=== PATIENT | female | born 1985 | race Hispanic/Latino ===

== ENCOUNTER 2016-10-01 09:48 | Observation (INO) | payer OTHER ==
[2016-10-01] MEDS ORDERED: Lactated Ringer's 1,000 ML IV SCH (10:30)
--- NOTE | 2016-10-01 10:46 | ED PDOC ---
HPI: Female Pain Time Seen by Provider: 10/01/16 10:09 Chief Complaint (Nursing): Abdominal Pain Chief Complaint (Provider): Vaginal bleeding - at approx 4 weeks History Per: Patient History/Exam Limitations: no limitations Onset/Duration Of Symptoms: Days Current Symptoms Are (Timing): Still Present Severity: None Associated Symptoms: Vomiting. denies: Fever, Chills, Nausea Additional Complaint(s): PT states her last normal menses was 09/05/16. She states she had a few days when she was not bleeding and has been spotting since. Pt reports increased bleeding last night and today. Beta Hcg was 72273 on 09/25/16 and 1600 on . Pt reports repeat Beta Hcg a few days ago but does not have the result yet. Pt did not have US to confirm IUP. Pts OB is Dr. Pineda. Past Medical History Reviewed: Historical Data, Nursing Documentation, Vital Signs Vital Signs: Last Vital Signs Temp 98.9 F 10/01/16 10:10 Pulse 68 10/01/16 10:10 Resp 20 10/01/16 10:10 BP 124/89 10/01/16 10:10 Pulse Ox 98 10/01/16 10:10 - Medical History PMH: No Chronic Diseases - Surgical History Surgical History: No Surg Hx - Family History Family History: States: No Known Family Hx - Living Arrangements Living Arrangements: With Family () - Social History Current smoker - smoking cessation education provided: No - Allergies Allergies/Adverse Reactions: Allergies Allergy/AdvReac Type Severity Reaction Status Date / Time No Known Allergies Allergy Verified 10/01/16 10:10 - Laboratory Results Result Diagrams: 10/01/16 10:57 10/01/16 10:57 - ECG O2 Sat by Pulse Oximetry: 98 Medical Decision Making Medical Decision Making: Beta Hcg 1799 today. US without IUP, ectopic cannot be excluded. Dr. Jade called. Discussed labs and US reports with Dr. Jade at 1600. States to repeat beta Hcg in 48 hours. Disposition - Clinical Impression Clinical Impression: Vaginal bleeding in - Patient ED Disposition Is Patient to be Admitted: No Counseled Patient/Family Regarding: Diagnosis, Need For Followup - Disposition Disposition: Routine/Home Disposition Time: 17:07 Condition: GOOD
[2016-10-01 11:09] LABS: HEMATOCRIT 36.6 % (34.0-47.0); MEAN CORPUSCULAR HEMOGLOBIN 29.3 pg (27.0-31.0); MEAN CORPUSCULAR HGB CONC 33.7 g/dL (33.0-37.0); RED CELL DISTRIBUTION WIDTH 13.8 % (11.5-14.5); WHITE BLOOD COUNT 6.6 K/uL (4.8-10.8)
[2016-10-01 11:19] LABS: ALB/GLOB RATIO 1.6 (1.0-2.1); ALKALINE PHOSPHATASE 43 U/L (38-126); ALT/SGPT 38 U/L (9-52); AST/SGOT 27 U/L (14-36); BILIRUBIN,TOTAL 0.4 mg/dl (0.2-1.3); BLOOD UREA NITROGEN 7 mg/dl (7-17); CALCIUM 9.5 mg/dL (8.4-10.2); CARBON DIOXIDE 23 mmol/L (22-30); CHLORIDE 106 mmol/L (98-107); GFR AFRICAN-AMERICAN > 60; GLUCOSE,RANDOM 82 mg/dL (65-105); POTASSIUM 4.5 MMOL/L (3.6-5.0); SODIUM 139 mmol/l (132-148); TOTAL PROTEIN 7.3 G/DL (6.3-8.2)
[2016-10-01 11:28] LABS: PARTIAL THROMBOPLASTIN TIME 28.7 Seconds (25.6-37.1)
--- NOTE | 2016-10-01 13:40 | US ---
HISTORY: Vaginal bleeding in . COMPARISON: No prior study available comparison TECHNIQUE: Transvaginal sonographic evaluation of the pelvis performed. FINDINGS: Uterus is retroverted measuring approximately 6.3 x 3.5 x 3.9 cm. Endometrial stripe measures 5 mm. Cervix is closed measuring 2.6 cm. Questionable small amount of endocervical fluid. No evidence of intrauterine gestation. . Right ovary measures 4.0 x 2.2 x 3.2 cm and exhibits arterial flow. . There is an inhomogeneous structure adjacent to the right ovary that measures approximately 1.7 x 1.5 x 1.4 cm with a small amount of periappendiceal fluid. . While the findings could represent spontaneous with a degenerating right ovarian corpus luteum cyst, the possibility of an ectopic must be excluded. Correlation with beta HCG. Recommend followup serial serum beta HCG and serial ultrasound. Note these findings were discussed with the emergency room BRYCE Hernandez at approximately 1:30 p.m. with written down and read back verification. Left ovary measures 3.2 x 2.1 x 2.7 cm and exhibits arterial flow. . Impression: No evidence of living intrauterine gestation. There is a somewhat inhomogeneous structure adjacent to the right ovary that could represent a corpus luteum cyst of an spontaneous however the possibility of ectopic must be considered. Followup serial serum beta HCG and serial ultrasound recommended. Emergency room staff aware of these findings.
[2016-10-01 17:29] VITALS: BP 125/74; PULSE 76; RESP 18; TEMP 97.9; O2SAT 100
--- NOTE | 2016-10-01 18:55 | CP.PCM.CON ---
History of Present Illness - History of Present Illness History of Present Illness: 30-year-old at approximately 4 weeks gestational age based on last menstrual period presented to emergency department with complaints of vaginal bleeding. Patient reports having weeklong history of spotting and today having bleeding consistent with a menstrual period. Patient denies any abdominal pain. Patient had beta hCG drawn on 09/25 and subsequently on 09/28 and today. Beta hCG levels have slightly increased. Patient pelvic ultrasound done today which reported no intrauterine . No pelvic free fluid. Adnexal area with possible corpus luteal cyst. Based on history, patient reports symptoms consistent with spontaneous AB. I discussed with patient that she is likely having a spontaneous AB, but another hCG level would be needed to confirm this. I discussed with patient there could be a possibility of an ectopic , but this is unlikely based on patient' s symptoms and presentation. I recommended patient to have another hCG level to confirm spontaneous AB and rule out ectopic. I discussed the patient information regarding spontaneous ABs and all patient questions answered. Past Patient History - Past Social History Smoking Status: Never Smoked - CARDIAC Hx Cardia Arrhythmia: Yes (Long QT syndrome) Hx Pacemaker: Yes - PSYCHIATRIC Hx Substance Use: No - SURGICAL HISTORY Hx Surgeries: No Meds Allergies/Adverse Reactions: Allergies Allergy/AdvReac Type Severity Reaction Status Date / Time No Known Allergies Allergy Verified 10/01/16 10:10 - Medications Medications: Current Medications Lactated Ringer's (Lactated Ringer's) 1,000 mls @ 500 mls/hr IV .Q2H JOSE Last Admin: 10/01/16 10:56 Dose: 500 mls/hr Physical Exam - Constitutional Appears: Well, No Acute Distress - Head Exam Head Exam: ATRAUMATIC - Eye Exam Eye Exam: Normal appearance - ENT Exam ENT Exam: Mucous Membranes Moist - Respiratory Exam Respiratory Exam: NORMAL BREATHING PATTERN - Cardiovascular Exam Cardiovascular Exam: REGULAR RHYTHM - GI/Abdominal Exam Additional comments: Abdomen soft, nontender, nondistended. No rebound. No guarding. Results - Vital Signs Recent Vital Signs: Last Vital Signs Temp 97.9 F 10/01/16 17:28 Pulse 76 10/01/16 17:28 Resp 18 10/01/16 17:28 BP 125/74 10/01/16 17:28 Pulse Ox 100 10/01/16 17:28 - Labs Result Diagrams: 10/01/16 10:57 10/01/16 10:57 - Imaging and Cardiology US - abdomen Status: Image reviewed by me, Report reviewed by me Assessment & Plan - Assessment and Plan (Free Text) Assessment: First trimester bleeding, likely spontaneous AB. Repeat hCG needed to confirm no ectopic. Plan: I discussed all results with patient. Discussed further observation needed. All patient questions answered. Patient will follow up with PMD in 2-3 days for repeat hCG. Patient given precautions on bleeding and pain. - Date & Time Date: 10/01/16 Time: 18:57
== END 2016-10-01 17:29 | disposition home or self-care (01) ==
LOC: H.ER 09:48 → H.EROBSV 16:37
PROVIDERS: ADMIT Emergency Medicine; ATTEND Emergency Medicine
DX: O20.9 Hemorrhage in early pregnancy, unspecified (principal); Z3A.01 Less than 8 weeks gestation of pregnancy; Z95.0 Presence of cardiac pacemaker
CPT/HCPCS: 76817; 80053; 84702; 85027; 85610; 85730; 86850; 86900; 96360; 96361; 99282; G0378; J7120

== ENCOUNTER 2016-10-05 14:03 | Emergency (ER) | payer OTHER ==
[2016-10-05 14:09] VITALS: RESP 16
--- NOTE | 2016-10-05 15:31 | ED PDOC ---
HPI: Female Pain Time Seen by Provider: 10/05/16 14:10 Chief Complaint (Nursing): Female Genitourinary Chief Complaint (Provider): Follow up for vaginal bleeding History Per: Patient History/Exam Limitations: no limitations Current Symptoms Are (Timing): Gone Now Additional History Per: Prior Records Additional Complaint(s): Clari is a 30 y/o female who presents to the ED as a follow up for vaginal bleeding. Patient was believed to have had a spontaneous but reports she is 4 weeks , which is consistent with lab results. Seen in ED twice last week, where they checked her Beta-HCG quantitative and Ultrasound. Beta- HCG has been increasing. Checked by [facility] Supervisor in ED and instructed to return for follow up today. Need to rule out spontaneous vs. ectopic . Patient is followed by Dr. Pineda, who is aware of patient coming to the ED. At this time she has no bleeding, abdominal pain, or any other medical complaints. Blood type is O+. PMD: Dr. Ronen Pineda Past Medical History Reviewed: Historical Data, Nursing Documentation, Vital Signs Vital Signs: Last Vital Signs Temp 98.4 F 10/05/16 14:05 Pulse 60 10/05/16 14:05 Resp 16 10/05/16 14:05 BP 124/76 10/05/16 14:05 Pulse Ox 99 10/05/16 14:05 - Medical History PMH: Cardia Arrhythmia (Long QT syndrome) - Surgical History Surgical History: Pacemaker - Family History Family History: States: Unknown Family Hx - Social History Current smoker - smoking cessation education provided: No Alcohol: None Drugs: Denies - Allergies Allergies/Adverse Reactions: Allergies Allergy/AdvReac Type Severity Reaction Status Date / Time No Known Allergies Allergy Verified 10/01/16 10:10 Review of Systems ROS Statement: Except As Marked, All Systems Reviewed And Found Negative Gastrointestinal: Negative for: Abdominal Pain Genitourinary Female: Negative for: Vaginal Bleeding Physical Exam - Reviewed Nursing Documentation Reviewed: Yes Vital Signs Reviewed: Yes - Physical Exam Appears: Positive for: Non-toxic, No Acute Distress Head Exam: Positive for: ATRAUMATIC, NORMAL INSPECTION, NORMOCEPHALIC Skin: Positive for: Normal Color, Warm, DRY Eye Exam: Positive for: EOMI, Normal appearance, PERRL Neck: Positive for: Normal, Painless ROM, Supple Cardiovascular/Chest: Positive for: Regular Rate, Rhythm. Negative for: Murmur Respiratory: Positive for: Normal Breath Sounds. Negative for: Accessory Muscle Use, Respiratory Distress Gastrointestinal/Abdominal: Positive for: Normal Exam, Soft. Negative for: Tenderness Back: Positive for: Normal Inspection. Negative for: Vertebral Tenderness Extremity: Positive for: Normal ROM, Capillary Refill (< 2 sec). Negative for: Deformity Neurologic/Psych: Positive for: Alert, Oriented. Negative for: Motor/Sensory Deficits - ECG O2 Sat by Pulse Oximetry: 99 (RA) Pulse Ox Interpretation: Normal Medical Decision Making Medical Decision Making: Transvaginal US reviewed from 10/01/16: FINDINGS: Uterus is retroverted measuring approximately 6.3 x 3.5 x 3.9 cm. Endometrial stripe measures 5 mm. Cervix is closed measuring 2.6 cm. Questionable small amount of endocervical fluid. No evidence of intrauterine gestation. . Right ovary measures 4.0 x 2.2 x 3.2 cm and exhibits arterial flow. . There is an inhomogeneous structure adjacent to the right ovary that measures approximately 1.7 x 1.5 x 1.4 cm with a small amount of periappendiceal fluid. . While the findings could represent spontaneous with a degenerating right ovarian corpus luteum cyst, the possibility of an ectopic must be excluded. Correlation with beta HCG. Recommend followup serial serum beta HCG and serial ultrasound. Note these findings were discussed with the emergency room BRYCE Hernandez at approximately 1:30 p.m. with written down and read back verification. Left ovary measures 3.2 x 2.1 x 2.7 cm and exhibits arterial flow. . Impression: No evidence of living intrauterine gestation. There is a somewhat inhomogeneous structure adjacent to the right ovary that could represent a corpus luteum cyst of an spontaneous however the possibility of ectopic must be considered. Followup serial serum beta HCG and serial ultrasound recommended. Emergency room staff aware of these findings. Previous labs reviewed: Beta HCG, Quant: 09/25/16: 1466.70 09/28/16: 1616.70 10/01/16: 1799.40 Impression: Vaginal bleeding in Differential includes spontaneous vs. ectopic Impression: Abnormal ultrasound findings Differential includes ovarian cyst vs. ectopic Time: 14:14 Initial Plan: -- serum ordered --Repeat US OB Transvaginal --Paged for consult with [facility] Supervisor on-call Time: 15:59 --Beta HCG Quant is 1571.90 Time: 16:46 US OB Transvaginal : Findings: The uterus measures approximately 6.6 x 5.0 x 3.4 cm. Retroverted. Cervix length measures approximately 2.6 cm. Small fluid is noted within the cervix. Endometrium measures approximately 0.8 cm in diameter. No evidence of intrauterine gestational sac. The right ovary measures 3.3 x 3.0 x 2.5 cm. Right adnexal 1.4 x 1.5 x 1.4 cm indeterminate nonvascular hyperechoic heterogeneous focus. The left ovary measures 2.9 x 3.0 x 2.3. Blood flow was demonstrated to both ovaries. Small to moderate pelvic free fluid. Impression: No evidence of intrauterine gestational sac. Again seen is an indeterminate nonvascular hyperechoic/heterogeneous structure adjacent to the right ovary. Ectopic cannot be excluded. Correlate clinically including quantitative beta HCG and cereal ultrasound as indicated. Small to moderate pelvic free fluid. Small fluid is noted within the cervix. Time: 17:07 --Discussed case with Dr. Graves, OB on-call, who is aware of the patient. --Notified Dr. Pineda, who will see the patient in ED and contact Dr. Davalos to participate in management of patient. 1900 Methotrexate consent obtained by Dr Graves. Dr Graves recommends metothrexate and orders the treatment. As per hospital policy I performed IM injection as per pharmacy instructions with appropriate precautions. Time: 19:09 Clinical Impression: Ectopic Upon provider reevaluation patient is medically stable, and requires no further treatment in the ED at this time. Patient will be discharged home. Counseling was provided and all questions were answered regarding diagnosis and need for follow up with PMD in 4 days. There is agreement to discharge plan. Return if symptoms persist or worsen. Scribe Attestation: Documented by Stephanie Castillo, acting as a scribe for Марина Peterson MD Provider Scribe Attestation: All medical record entries made by the Scribe were at my direction and personally dictated by me. I have reviewed the chart and agree that the record accurately reflects my personal performance of the history, physical exam, medical decision making, and the department course for this patient. I have also personally directed, reviewed, and agree with the discharge instructions and disposition. Disposition - Clinical Impression Clinical Impression: Ectopic - Patient ED Disposition Is Patient to be Admitted: No Doctor Will See Patient In The: Office Counseled Patient/Family Regarding: Studies Performed, Diagnosis, Need For Followup - Disposition Referrals: Ronen Pineda DO [Staff Provider] - Disposition: Routine/Home Disposition Time: 19:09 Condition: GOOD Additional Instructions: Follow up with your PCP in 4 days. Return for worsening. Instructions: Methotrexate (By injection), Ectopic (ED)
--- NOTE | 2016-10-05 16:48 | US ---
Indication: , vaginal bleeding Comparison: Ob transvaginal ultrasound performed 10/01/16 Technique: Transvaginal pelvic ultrasound. Findings: The uterus measures approximately 6.6 x 5.0 x 3.4 cm. Retroverted. Cervix length measures approximately 2.6 cm. Small fluid is noted within the cervix. Endometrium measures approximately 0.8 cm in diameter. No evidence of intrauterine gestational sac. The right ovary measures 3.3 x 3.0 x 2.5 cm. Right adnexal 1.4 x 1.5 x 1.4 cm indeterminate nonvascular hyperechoic heterogeneous focus. The left ovary measures 2.9 x 3.0 x 2.3. Blood flow was demonstrated to both ovaries. Small to moderate pelvic free fluid. Impression: No evidence of intrauterine gestational sac. Again seen is an indeterminate nonvascular hyperechoic/heterogeneous structure adjacent to the right ovary. Ectopic cannot be excluded. Correlate clinically including quantitative beta HCG and cereal ultrasound as indicated. Small to moderate pelvic free fluid. Small fluid is noted within the cervix.
[2016-10-05] MEDS ORDERED: Methotrexate 50 mg/2 ml Inj IM ONE (18:08)
[2016-10-05] MEDS ORDERED: PED IM ONE (18:30)
[2016-10-05] MEDS ORDERED: METHOTREXATE IM ONE (18:30)
--- NOTE | 2016-10-05 19:03 | CP.PCM.CON ---
History of Present Illness - History of Present Illness History of Present Illness: 30 yo G1 LMP 09/05 @ 4.2wks was referred to ED by Dr. Pineda for evaluation. Pt c/ o menstrual type bleedings x4 days with heavy bleeding x2 days. Patient states bleeding has decreased and is resolving. Quantitative HCG on 09/25/16 1466, 1616, 10/01 1570, 10/05 1799. US showed a rt adnexal indeterminate nonvascular hyperechoic heterogeneous mass [id number] mm, stable since prior us. 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 works out regularly PSHX: ICD placement 9yrs ago, is currently turned off [employer] HX: Last PAP 5yrs ago norml FHX: THYROID DISEASE in mother, sisters and female cousins NKDA MEDIC: Propanolol 10mg tid; PNV SHX: Denies etoh, tobacco or illicit drug use. Review of Systems - Review of Systems Systems not reviewed;Unavailable: Unstable Vital Signs - Constitutional Constitutional: absent: Chills, Fatigue, Headache, Lethargy, Malaise - Cardiovascular Cardiovascular: absent: Chest Pain, Chest Pain with Activity, Dyspnea, Dyspnea on Exertion, Leg Edema, Lightheadedness, Palpitations - Respiratory Respiratory: absent: Cough - Gastrointestinal Gastrointestinal: Loose Stools. absent: Abdominal Pain, Bloating, Cramping, Diarrhea, Vomiting - Genitourinary Genitourinary: absent: Difficulty Urinating, Dysuria - Reproductive: Female Reproductive:Female: absent: Amenorrhea, Pelvic Pain - Menstruation Menstruation: Abnormal Vaginal Bleeding - Neurological Neurological: absent: Confusion, Syncope Past Patient History - Infectious Disease Hx of Infectious Diseases: None - Past Social History Alcohol: None Drugs: Denies - CARDIAC Hx Cardia Arrhythmia: Yes (Long QT syndrome) Hx Pacemaker: Yes - PSYCHIATRIC Hx Substance Use: No - SURGICAL HISTORY Hx Surgeries: No - ANESTHESIA Hx Anesthesia Reactions: No Meds Allergies/Adverse Reactions: Allergies Allergy/AdvReac Type Severity Reaction Status Date / Time No Known Allergies Allergy Verified 10/01/16 10:10 Physical Exam - Constitutional Appears: Well, No Acute Distress - Head Exam Head Exam: ATRAUMATIC, NORMOCEPHALIC - Respiratory Exam Respiratory Exam: Clear to Auscultation Bilateral, NORMAL BREATHING PATTERN. absent: Accessory Muscle Use, Decreased Breath Sounds, Rales, Rhonchi, Wheezes - Cardiovascular Exam Cardiovascular Exam: REGULAR RHYTHM - GI/Abdominal Exam GI & Abdominal Exam: Normal Bowel Sounds, Soft. absent: Distended, Guarding, Hyperactive Bowel Sounds, Mass, Rebound, Rigid, Tenderness Results - Vital Signs Recent Vital Signs: Last Vital Signs Temp 98.4 F 10/05/16 14:05 Pulse 60 10/05/16 14:05 Resp 16 10/05/16 14:05 BP 124/76 10/05/16 14:05 Pulse Ox 99 10/05/16 17:11 - Labs Labs: Laboratory Results - last 24 hr 10/05/16 15:30 Beta HCG, Quant 1571.90 Assessment & Plan - Assessment and Plan (Free Text) Assessment: I: Ectopic P: Pt d/w Dr. Pineda - Methotrexate 95mg IM x1. Pt to return on Day 4 10/08/16 for QHCG and on Day 7, 10/10. Dr. Pineda also stated if she prefers she may initially go to office on Day 5,Sunday 10/08. Pelvic rest until further notice. d/c PNV. No etoh beverages
[2016-10-05 19:40] VITALS: BP 120/70; PULSE 55; TEMP 98.5
[2016-10-06 14:55] VITALS: O2SAT 99
== END 2016-10-05 19:43 | disposition home or self-care (01) ==
LOC: H.ER 14:03
DX: O00.90 Unspecified ectopic pregnancy without intrauterine pregnancy (principal); Z3A.01 Less than 8 weeks gestation of pregnancy; Z95.0 Presence of cardiac pacemaker; Z95.810 Presence of automatic (implantable) cardiac defibrillator
CPT/HCPCS: 76817; 84702; 96372; 99283; J9250

== ENCOUNTER 2016-10-13 08:53 | Emergency (ER) | payer OTHER ==
[2016-10-13 08:57] VITALS: BP 123/83; PULSE 60; O2SAT 100
[2016-10-13 09:01] VITALS: RESP 19; TEMP 97
--- NOTE | 2016-10-13 09:12 | ED PDOC ---
HPI: Female Pain Time Seen by Provider: 10/13/16 09:05 Chief Complaint (Nursing): Abnormal Labs History Per: Patient (s/p miscarriage. She is s/p IM methotrexate 1 week ago. She hcg level was around 1500 last week and decreased to 1100 on 4 days. She started bleeding again yesterday but denies pain, fever, chills, abd pain. She was directed to have repeat HCG level done.) Past Medical History Reviewed: Historical Data, Nursing Documentation, Vital Signs Vital Signs: Last Vital Signs Temp 97.0 F L 10/13/16 08:56 Pulse 60 10/13/16 08:56 Resp 19 10/13/16 08:56 BP 123/83 10/13/16 08:56 Pulse Ox 100 10/13/16 08:56 - Medical History PMH: Cardia Arrhythmia (Long QT syndrome) - Surgical History Surgical History: Pacemaker - Family History Family History: States: Unknown Family Hx - Living Arrangements Living Arrangements: With Family - Home Medications Home Medications: Ambulatory Orders Medication Instructions Recorded No Known Home Med 10/13/16 - Allergies Allergies/Adverse Reactions: Allergies Allergy/AdvReac Type Severity Reaction Status Date / Time No Known Allergies Allergy Verified 10/01/16 10:10 Review of Systems ROS Statement: Except As Marked, All Systems Reviewed And Found Negative Constitutional: Negative for: Fever, Chills Gastrointestinal: Negative for: Abdominal Pain Genitourinary Female: Positive for: Vaginal Bleeding Physical Exam - Reviewed Nursing Documentation Reviewed: Yes Vital Signs Reviewed: Yes - Physical Exam Appears: Positive for: Well, Non-toxic, No Acute Distress Head Exam: Positive for: ATRAUMATIC, NORMAL INSPECTION, NORMOCEPHALIC Skin: Positive for: Normal Color Eye Exam: Positive for: Normal appearance ENT: Positive for: Normal ENT Inspection Neck: Positive for: Supple Gastrointestinal/Abdominal: Negative for: Distended Extremity: Positive for: Normal ROM Neurologic/Psych: Positive for: Alert, Oriented - Laboratory Results Result Diagrams: 10/13/16 09:15 - ECG O2 Sat by Pulse Oximetry: 100 Medical Decision Making Medical Decision Making: case d/w Dr. Pineda. hcg decreased as expected by 50% from previous. No further treatment. Expect bleeding and to followup in one week. Disposition - Clinical Impression Clinical Impression: Ectopic - Patient ED Disposition Is Patient to be Admitted: No Doctor Will See Patient In The: Office Counseled Patient/Family Regarding: Diagnosis, Need For Followup - Disposition Referrals: Ronen Pineda DO [Family Provider] - 10/19/16 Disposition: Routine/Home Disposition Time: 10:15 Condition: STABLE Instructions: Ectopic (ED) Forms: [facility] (Mauritian) - POA Present On Arrival: None
[2016-10-13 09:57] LABS: BASO % 0.4 % (0.0-2.0); EOS # 0.3 K/uL (0.0-0.7); EOS % 4.8 % (0.0-4.0); HEMATOCRIT 37.3 % (34.0-47.0); LYMPH # 1.6 K/uL (1.0-4.3); LYMPH % 21.4 % (20.0-40.0); MEAN CELL VOLUME 87.9 fl (81.0-99.0); MEAN PLATELET VOLUME 8.2 fl (7.2-11.7); MONO # 0.7 K/uL (0.0-0.8); MONO % 9.6 % (0.0-10.0); NEUT # 4.6 K/uL (1.8-7.0); NEUT % 63.8 % (50.0-75.0); NRBC % 0.2 % (0.0-0.0); RED CELL DISTRIBUTION WIDTH 13.6 % (11.5-14.5); WHITE BLOOD COUNT 7.3 K/uL (4.8-10.8)
== END 2016-10-13 10:50 | disposition home or self-care (01) ==
LOC: H.ER 08:53
DX: O00.90 Unspecified ectopic pregnancy without intrauterine pregnancy (principal); Z95.0 Presence of cardiac pacemaker